=== PATIENT | female | born 1940 | race Caucasian/White ===

== ENCOUNTER 2017-01-26 15:22 | Outpatient (CLI) | payer OTHER ==
[2014-09-01 15:45] VITALS: BP 145/82
--- NOTE | 2017-01-26 16:42 | Diagnostic Imaging Report ---
ALISE GUZMAN~ [facility] [address] [facility] [address] [address] ~ ~ ~ ~ Report Submission Date: Jan 26, 2017 4:16:05 PM CDT Patient ~ Study Name: PJ ROBERTSON ~ Date: Jan 26, 2017 3:25:45 PM CDT MRN: [id number] ~ Modality Type: CR Gender: F ~ Description: SPINE : 38 ~ Institution: [facility] Physician: ALISE GUZMAN ~ ~ ~ ~ Examination: Plain film lumbar spine History: Discomfort Findings: 3 views of the lumbar spine demonstrate normal height.~ No anterior compression. Mild listhesis of L4 on L5. Slight curvature to the right on the anterior posterior film. Anterior and lateral osteophyte formation. Vascular calcifications involving the abdominal aorta and iliac vessels. Impression: Extensive degenerative changes. Rightward curvature. No evidence for compression deformity. ~ Electronically signed on Jan 26, 2017 4:16:05 PM CDT by: Adrian SERRANO
--- NOTE | 2017-01-26 16:44 | Diagnostic Imaging Report ---
ALISE GUZMAN~ [facility] [address] [facility] [address] [address] ~ ~ ~ ~ Report Submission Date: Jan 26, 2017 4:18:16 PM CDT Patient ~ Study Name: PJ ROBERTSON ~ Date: Jan 26, 2017 3:44:31 PM CDT MRN: [id number] ~ Modality Type: CR Gender: F ~ Description: PELVIS : 38 ~ Institution: [facility] Physician: ALISE GUZMAN ~ ~ ~ ~ Examination: Plain film hip/pelvis History: Discomfort Comparison exams: None provided Findings: 2 views of the hip demonstrate normal cortical margins. No fracture no dislocation. Groin vascular calcifications. Impression: No acute osseous abnormality. ~ Electronically signed on Jan 26, 2017 4:18:16 PM CDT by: Adrian SERRANO
== END 2017-01-26 15:23 ==
LOC: RAD 15:22
PROVIDERS: ATTEND Physician Assistant
DX: M54.5 Low back pain (principal)
CPT/HCPCS: 72100

== ENCOUNTER 2017-05-12 13:10 | Outpatient (CLI) | payer OTHER ==
[2014-09-01 15:45] VITALS: BP 145/82
--- NOTE | 2017-05-13 11:07 | OP Clinic Progress Note ---
REASON FOR VISIT: This 76-year-old lady has had a longstanding hearing loss. She has worn hearing aids for 10 years. There is a family history of hearing loss with 3 brothers with hearing aids, a sister with a hearing aid, and another sister being deaf in 1 ear. She does not know any history regarding her grandparents and as far as she knows, her parents actually hear adequately without any obvious major hearing loss, although the history is somewhat genetically strange. Again with the hearing aids, she has tried to keep it out of the right ear. There has been some pain and discomfort and some recent cleaning with a hearing screen coordinator recently. 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 Under the microscope, I suctioned, debrided, and cleaned the ear. There is some granular infection on the eardrum. Lotrisone lotion was placed in the right ear along with a cotton ball to keep in for 3 days. PLAN: She will come back in about 2 weeks. I will either micro-debride it or begin cleaning the otitis externa of the left ear. cc: Dr. Selam SERRANO
== END 2017-05-12 13:11 ==
LOC: ENT 13:10
PROVIDERS: ATTEND Otolaryngology
DX: H60.91 Unspecified otitis externa, right ear (principal)
CPT/HCPCS: 69210; G0463

== ENCOUNTER 2017-06-02 09:46 | Outpatient (CLI) | payer OTHER ==
[2014-09-01 15:45] VITALS: BP 145/82
--- NOTE | 2017-06-03 14:21 | OP Clinic Progress Note ---
REASON FOR VISIT: Obdulia is seen in follow up of her fairly severe right-sided otitis externa. I debrided and cleaned her ears several weeks ago. In follow up, her hearing has improved. She still gets some crackling and popping in that ear. There is less pain. There is fairly significant improvement of what initially was fairly marked otomycotic otitis externa. I re-debrided and cleaned the ear under the microscope and placed Lotrisone lotion in the ear for her to keep in for 3 days. Additional Lotrisone was placed in the baudilio of the pinna, which also is excoriated, inflammatory, and crusted with keratosis. PLAN: Although there is fairly marked improvement, there is still work that needs to be done with both debridement and cleaning. I have asked her to come back in about 2 or 3 weeks to re-debride and re-clean and replace this. The patient is a little reluctant to come back, as she feels that there has been a fairly significant improvement. I pointed out the importance of this. If there was simply either a pill or some drops to put in the ear to resolve the issue, I would certainly do it, but I think it needs physical debridement and cleaning. The patient may or may not follow up. She noted that she appreciated the improvement but simply has some renitence in coming back. Again, I have pointed out the importance for the care of the ear for her to return, but I have left that to her discretion after the discussion. cc: Dr. Selam SERRANO
== END 2017-06-02 09:47 ==
LOC: ENT 09:46
PROVIDERS: ATTEND Otolaryngology
DX: H60.8X1 Other otitis externa, right ear (principal)
CPT/HCPCS: 69220; G0463

== ENCOUNTER 2018-12-19 14:00 | Outpatient (CLI) | payer OTHER ==
[2014-09-01 15:45] VITALS: BP 145/82
== END 2018-12-19 14:05 | disposition home or self-care (01) ==
LOC: LABRHC 14:00
PROVIDERS: ATTEND Family Medicine
DX: Z11.2 Encounter for screening for other bacterial diseases (principal)
CPT/HCPCS: 87086

== ENCOUNTER 2019-02-10 09:11 | Outpatient (CLI) | payer OTHER ==
[2014-09-01 15:45] VITALS: BP 145/82
[2019-02-10 10:30] LABS: HDL 74 mg/dL (>40); eGFR (Non-African) > 60
== END 2019-02-10 09:13 ==
LOC: LAB 09:11
PROVIDERS: ATTEND Family Medicine
DX: E78.2 Mixed hyperlipidemia (principal)
CPT/HCPCS: 36415; 80053; 80061

== ENCOUNTER 2019-06-25 11:13 | Emergency (ER) | payer OTHER ==
[~2019-06-25 11:13] MED LIST: IPRATROPIUM/ALBUTEROL SULFATE 3 ML AMPUL.NEB NEB ONE
--- NOTE | 2019-06-25 11:18 | ED Physician Documentation ---
General Adult - HISTORIAN Historian: patient - HPI Stated Complaint: sob Chief Complaint: General Adult Onset: hours Timing: still present Severity: moderate Further Comments: yes (Pt is a 78 yo female with hx COPD and c/o dyspnea. Pt's SpO2 on presentation was 84% RA. Pt is on home O2, which she uses only at night. This am, however, pt needed it after getting out of bed. No chest pain.) - ROS CONST: no problems EYES/ENT: none CVS/RESP: shortness of breath GI/: none MS/SKIN/LYMPH: none - PAST HX Past History: COPD, hypertension, other (HLD) Allergies/Adverse Reactions: Allergies Allergy/AdvReac Type Severity Reaction Status Date / Time No Known Drug Allergies Allergy Verified 06/25/19 11:27 - SOCIAL HX Smoking History: other (unk) - FAMILY HX Family History: No - VITAL SIGNS Vital Signs: Vital Signs Temp Pulse Resp BP Pulse Ox 180/92 09/01/14 14:00 - REVIEWED ASSESSMENTS Nursing Assessment Reviewed: Yes Vitals Reviewed: Yes Progress - Progress Progress: CXR: HISTORY: 78-year-old female with shortness of breath, history of COPD COMPARISON: None available TECHNIQUE: Single portable AP view of the chest was performed. FINDINGS: There is soft tissue prominence about the right hilum. No pneumothorax, consolidative infiltrates, or pulmonary edema. The heart is enlarged. The aortic arch is calcific and possibly ectatic. The right humeral head is high-riding, consistent with significant rotator cuff tendinopathy. IMPRESSION: 1. Cardiomegaly and atherosclerotic vascular disease. 2. Prominence of the right hilum is nonspecific and may be due to prominent pulmonary arterial or venous structures, prominence of the ascending thoracic aorta, or lymphadenopathy. Consider follow-up contrasted CT scan of the chest for better characterization. Duoneb HFN Pulmicort HFN Albuterol HFN Solu-medrol 125 mg IV improved Rx Prednisone 50 mg po qd x next 4 days. Continue home inhaler meds. f/u pcp later this week. - EKG/XRAY/CT EKG: NSR (HR=80; LAD; non-specific T-wave abnormality) General Adult Physical Exam - PHYSICAL EXAM GENERAL APPEARANCE: moderate distress EENT: pharynx normal NECK: normal inspection, supple RESPIRATORY: wheezes, rhonchi CVS: reg rate & rhythm, heart sounds normal ABDOMEN: soft, no organomegaly, normal bowel sounds BACK: normal inspection, no CVA tenderness SKIN: warm/dry, normal color EXTREMITIES: non-tender, normal range of motion, no evidence of injury, no edema NEURO: oriented X3, motor nml, sensation nml Discharge Clincal Impression: COPD exacerbation Referrals: Selam Shi MD [Primary Care Provider] - Condition: Stable Disposition: 01 HOME, SELF-CARE Decision to Admit: NO Decision Time: 13:00
[2019-06-25] MEDS ORDERED: IPRATROPIUM/ALBUTEROL SULFATE 3 ML AMPUL.NEB NEB ONE (11:23)
[2019-06-25] MEDS ORDERED: BUDESONIDE 0.5MG/2ML AMPUL.NEB NEB STA (11:24)
[2019-06-25 11:41] LABS: BASOPHILS % 0.9 % (0.0-1.5); NEUTROPHILS # 5.4 # k/uL (1.4-7.7)
[2019-06-25 12:09] LABS: eGFR (Non-African) > 60
--- NOTE | 2019-06-25 12:13 | Diagnostic Imaging Report ---
PATIENT MR#: [id number] PATIENT PATIENT NAME: PJ ROBERTSON DATE OF : 1940 REFERRING PHYSICIAN: Fercho Corbin EXAM DATE: 06/25/2019 ACCESSION NUMBER: [id number] EXAM DESCRIPTION: CHEST 1VIEW HISTORY: 78-year-old female with shortness of breath, history of COPD COMPARISON: None available TECHNIQUE: Single portable AP view of the chest was performed. FINDINGS: There is soft tissue prominence about the right hilum. No pneumothorax, consolidative infi ltrates, or pulmonary edema. The heart is enlarged. The aortic arch is calcific and possibly ectatic. The righ t humeral head is high-riding, consistent with significant rotator cuff tendinopathy. IMPRESSION: 1. Cardiomegaly and atherosclerotic vascular disease. 2. Prominence of the right hilum is nonspecific and may be due to prominent pulmonary arterial or ve nous structures, prominence of the ascending thoracic aorta, or lymphadenopathy. Consider follow-up contrasted CT sca n of the chest for better characterization. Read by: Dr. Salvador Billy Transcribed by: Transcribed Date: Electronically signed by: Dr. Salvador Billy Date signed: 06/25/2019 12:13:31 PM
[2019-06-25] MEDS ORDERED: ALBUTEROL SULFATE 2.5 MG/3 ML AMPUL.NEB NEB ONE (12:19)
[2019-06-25] MEDS ORDERED: methylPREDNISolone SOD SUCC 125 MG/2 ML VIAL IV ONE (12:34)
[2019-06-25 13:18] VITALS: BP 160/91
== END 2019-06-25 13:09 | disposition home or self-care (01) ==
LOC: ED 11:13
DX: J44.1 Chronic obstructive pulmonary disease with (acute) exacerbation (principal)
CPT/HCPCS: 80053; 82550; 82553; 83880; 84484; 85025; 93005; 94640; 96360; 99284; J2930; J7626; S1016